=== PATIENT | female | born 1970 | race Caucasian/White ===

== ENCOUNTER → 2016-09-14 | Outpatient (CLI) | payer BC ==
--- NOTE | 2016-09-14 17:18 | KCIC ---
MR of the left knee Indication: Left knee pain. Osteoarthritis. Pain for a few weeks. Difficulty walking. Technique: The standard multiplanar sequences are obtained. Findings: Medial meniscus: Mild deformity of the medial meniscus compatible with degeneration, but no evidence of a tear. Lateral meniscus: Mild distortion compatible with degeneration but no clear-cut tear. Anterior cruciate ligament: Intact Posterior cruciate ligament: Intact Medial collateral ligament: Intact. Iliotibial band: Intact. Posterolateral structures: Fibular collateral ligament, biceps tendon and popliteus tendon are intact. Extensor mechanism: Intact. Fluid: Small joint effusion. Small Lucia's cyst. Articular cartilage -patellofemoral joint: Severe chondromalacia of the patella with subchondral cystic change. Moderate chondromalacia at the femoral trochlea. -medial compartment: Moderate medial femoral condyle chondromalacia. -lateral compartment: Severe chondromalacia at the posterior weightbearing aspect. Bones: No significant lesion or acute fracture. Soft tissue: Small cyst or ganglion anterior to the medial tibial plateau. Mild fluid within the infrapatellar fat. Impression: 1. Primary osteoarthritis. 2. Medial and lateral meniscal distortion or degeneration, without clear-cut tear. Electronically signed by: Lito Majano MD (09/14/2016 5:15 PM)
== END | disposition home or self-care (01) ==
LOC: KCIC MRI 16:10
PROVIDERS: ATTEND Nurse Practitioner Family
DX: M17.12 Unilateral primary osteoarthritis, left knee (principal); R26.2 Difficulty in walking, not elsewhere classified
CPT/HCPCS: 73721